=== PATIENT | female | born 1965 | race Caucasian/White ===

== ENCOUNTER 2016-05-15 18:13 | Emergency (ER) | payer BC ==
[~2016-05-15 18:13] MED LIST: ACCU10 PO; ACCU20 PO; ACET500CAP PO; ADVAIR250 INH; ALBUTEROL5 INH; ALPHA LIPOIC300 MG PO; ARIMIDEX1 PO; ASAB PO; ASAEC PO; BEN25 PO; CATAPRES2 TOP; CATPATCH1 TOP; COREG6 PO; FLUCON1 PO; LEVAQUIN750 MG PO; LIPITOR20 PO; LOP50 PO; LORTAB 5 PO; MIRALAXPKT PO; NEXIUM40 PO; NITROSTAT0.4 MG SL; NOVLOGPUMP SC; OMNICEF300 PO; PROAIR HFA INH; REG5 PO; SYN.05 PO; SYNTHROID137 MCG PO; TOPXL50 PO; VITAMIN D1000 UNI1 PO; VITAMIN D31000 UNIT PO; X5 PO
[2016-05-15 18:31] LABS: BASOPHILS 0.6 %; BASOPHILS ABSOLUTE 0.05 10/3/uL (0.0-0.16); EOSINOPHILS 0.1 %; EOSINOPHILS ABSOLUTE 0.01 10/3/uL (0.0-0.53); HEMATOCRIT 41.4 % (36.0-48.0); IMMATURE GRANULOCYTES 0.1 %; IMMATURE GRANULOCYTES ABSOLUTE 0.01 10/3/uL (0.0-0.11); LYMPHOCYTES 33.7 %; LYMPHOCYTES ABSOLUTE 2.77 10/3/uL (0.67-4.30); MANUAL DIFF NO %; MEAN CORPUS HGB CONC 33.8 g/dL (32.0-36.0); MEAN CORPUSCULAR HEMOGLOB 29.7 pg (26.0-34.0); MEAN CORPUSCULAR VOLUME 87.9 fL (80-100); MONOCYTES 12.3 %; MONOCYTES ABSOLUTE 1.01 10/3/uL (0.21-1.20); NEUTROPHILS 53.2 %; NEUTROPHILS ABSOLUTE 4.37 10/3/uL (2.02-8.40); PLATELET COUNT 374 10/3/uL (150-400); RBC DISTRIBUTION WIDTH 14.5 % (12.0-16.0); RED CELL COUNT 4.71 10/6/uL (4.0-5.6); WHITE BLOOD CELLS 8.2 10/3/uL (4.5-10.5)
[2016-05-15 18:46] LABS: A/G RATIO 0.8 (0.7-1.9); ALBUMIN 3.3 G/DL (3.5-5.0); BUN (BLOOD UREA NITROGEN) 8 MG/DL (6-23); CALCIUM, SERUM 8.6 MG/DL (8.5-10.4); CHLORIDE, SERUM 102 MMOL/L (96-112); CO2 (CARBON DIOXIDE) 29 MMOL/L (24-34); CREATININE 0.88 MG/DL (0.55-1.02); GFR AFRICAN AMERICAN 89 ML/MIN (>=60); GFR NON AFRICAN AMERICAN 77 ML/MIN (>=60); GLOBULIN 4.1 G/DL (2.5-4.1); SGOT(AST) 27 U/L (5-40); SGPT(ALT) 49 U/L (5-65); SODIUM, SERUM 141 MMOL/L (135-148); TOTAL PROTEIN 7.4 G/DL (6.0-8.5)
[2016-05-15 18:47] LABS: ALKALINE PHOSPHATASE 123 U/L (45-117); GLUCOSE, SERUM 152 MG/DL (60-99); TOTAL BILIRUBIN 0.2 MG/DL (0-1.2)
[2016-10-11] MEDS ORDERED: COREG6 PO (23:53)
[2016-10-11] MEDS ORDERED: ACCURETI1 PO (23:53)
[2016-10-11] MEDS ORDERED: HALF81 PO (23:54)
[2016-10-11] MEDS ORDERED: SYN125 PO (23:54)
[2016-10-11] MEDS ORDERED: FLONASE NAS (23:54)
[2016-10-11] MEDS ORDERED: LIPITOR20 PO (23:54)
[2016-10-11] MEDS ORDERED: ATV.5 PO (23:55)
[2016-10-11] MEDS ORDERED: NOVLOGPUMP SC (23:55)
[2016-10-11] MEDS ORDERED: PROVHFA INH (23:55)
[2016-10-14] MEDS ORDERED: PLAVIX PO (09:34)
== END 2016-05-15 20:50 | disposition home or self-care (01) ==
LOC: ER 18:13
PROVIDERS: Emergency Medicine
DX: J06.9 Acute upper respiratory infection, unspecified (principal); I10 Essential (primary) hypertension; E10.9 Type 1 diabetes mellitus without complications; Z90.81 Acquired absence of spleen; Z88.2 Allergy status to sulfonamides; Z88.8 Allergy status to other drugs, medicaments and biological substances; Z79.4 Long term (current) use of insulin; Z79.82 Long term (current) use of aspirin; Z79.899 Other long term (current) drug therapy
CPT/HCPCS: 71020; 80053; 85025; 87040; 93005; 94640; 96372; 99285